=== PATIENT | female | born 1960 | race Caucasian/White ===

== ENCOUNTER → 2019-06-24 | Day surgery (SDC) | payer OTHER ==
[~2019-06-24] MED LIST: ALBUTEROL0.63 MG/3 NEB; ALLEGRA ALLERG180 MG PO; AMLODIPINE BESYL5 MG PO; CELEXA10 MG PO; COREG CR40 MG PO; CRESTOR10 MG PO; DIOVAN160 MG PO; EDARBYCLOR 40-1 EAC1 PO; FENTANYL CITRATE/PF 100MCG/2 ML INJ ONE; LASIX40 MG PO; MEGA RED KRILL OIL PO; MIDAZOLAM HCL 2 MG/2 ML VIAL ONE; PLAVIX75 MG PO; PREVACID30 MG PO; PROPOFOL IV EMULSION 10 MG/ML 50 ML VIAL ONE; QVAR REDIHALE10.6 G1 INH; TRILIPIX135 MG PO; WELCHOL625 MG PO; aspirin PO; potassium PO
--- OUTSIDE RECORDS SUMMARY | 2019-06-24 06:31 | XMS REPORT ---
Author Author [facility] Address Unknown Phone Unavailable Care Team Providers Care Ergonomic Specialist Name Role Phone Unavailable Unavailable Payers Payer Name Policy Type Policy Number Effective Date Expiration Date Problems This patient has no known problems. Allergies, Adverse Reactions, Alerts Allergy Name Allergy Type Status Severity Reaction(s) Onset Date Inactive Date Treating Clinician Comments Penicillins DA Active SV 2017-12-14 00:00:00 Medications This patient has no known medications. Results Test Description Test Time Test Comments Text Results Atomic Results Result Comments VULVA/LABIA,BIOPSY 2017-12-17 17:48:00 RUN DATE: 12/18/17 [facility] PAGE 1 RUN TIME: 946 Specimen Inquiry RUN USER: INTERFACE PATIENT: TORRIE HERNANDEZ LOC: [facility] U #: [id number] AGE/SX: 57/F ROOM: RE12/14/17REG DR: Sofia Damon MD : 64 BED: DIS: STATUS: DEP [facility] TLOC: SPEC #: [id number] RECD: 12/14/17 STATUS: SERGO LI #: [id number] VANDANA: 12/14/17- SUBM DR: Sofia Damon MD ENTERED: 12/14/17 SP TYPE: VULV/LAB OTHR DR: Andreas Rushing Jr, MD ORDERED: LEVEL IV CODES: [id number] - VULVA, NOS COPIES TO: Andreas Rushing Jr, MD [address] [place] [address] Sofia Damon MD [id number] [place] [phone] PROCEDURES: LEVEL IV (Incomplete) TISSUES: VULVA, NOS - VULVAR LESION CLINICAL HISTORY 57 year old, vulvar lesion (wpd) FINAL DIAGNOSIS Skin, vulvar lesion, biopsy: - mild epidermal hyperplasia with hyperkeratosis and basal atypia - superficial perivascular chronic inflammation and fibrosis - extradepartmental consul tation with [facility] for further evaluation ADDENDUM PENDING, SPECIMEN IS BEING SENT TO [facility] Tissue code 1 CPT code(s): 88617 cds/wpd 12/17/17 @ 1737 CONTINUED ON NEXT PAGE RUN DATE: 12/18/17 [facility] PAGE 2 RUN TIME: 946 Specimen Inquiry RUN USER: INTERFACE SPEC #: [id number] PATIENT: TORRIE HERNANDEZ #[id number] ( Continued) GROSS DESCRIPTION The specimen is received in a formalin-filled container, labeled with the patient's name and designated "vulvar lesion". The specimen consists of an ellipse of unoriented 1.4 x 0.9 cm hair bearing, villalobos- pelaez skin with underlying pink-yellow tissue measuring 0.9 cm. The margin is inked black. It is sectioned and submitted in toto in one cassette. [employer]/wpd 12/14/17 @ 0309 MICROSCOPIC DESCRIPTION Sections of the vulvar biopsy show a central area of mild epidermal hyperplasia with hypergranulosis and hyperkeratosis. Moderate perivascular chronic inflammation is present in the superficial dermis associated with fibrosis. Focal basal atypia is also n oted. COMMENT: This biopsy will be sent to [facility] for extradepartmental consultation. cds/wpd 12/17/17 @ 1735 Signed Bernardo Mendez Hugh 12/17/17 1748 ----- END OF REPORT VULVA/LABIA,BIOPSY 2017-12-17 17:48:00 RUN DATE: 12/20/17 [facility] PAGE 1 RUN TIME: 1323 Specimen Inquiry RUN USER: INTERFACE PATIENT: HERNANDEZTORRIE FULLER MARTINEZ LOC: DonSIM[facility]N U #: [id number] AGE/SX: 57/F ROOM: RE12/14/17REG DR: Sofia Damon MD : 64 BED: DIS: STATUS: SVETA [facility] TLOC: SPEC #: [id number] RECD: 12/14/17 STATUS: SERGO LI #: [id number] VANDANA: 12/14/17- SUBM DR: Sofia Damon MD ENTERED: 12/14/17 SP TYPE: VULV/LAB OTHR DR: Andreas Rushing Jr, MD ORDERED: LEVEL IV ADDENDUM FINDINGS Addendum #1 Entered: 12/19/170 The following is the final extradepartmental consultation diagnosis received from Sravani Thurman M.D., at [facility], [place], [place], on December 19, 2017. ADDENDUM FINAL DIAGNOSIS: Skin, vulva, biopsy: - scar with chronic inflammation COMMENT: Clinical correlation may be helpful to determine if this could represent the site of a prior procedure. I acknowledge the above findings. C. Hugh Mendez M.D., Pathologist/wpd December 19, 2017 @ 1510 Addendum Signed Bernardo Mendez 12/20/17 132 (prelim) Benrardo Mendez 12/20/17 1322 CODES: [id number] - VULVA, NOS COPIES TO: Andreas Rushing Jr, MD [address] [place] [address] CONTINUED ON NEXT PAGE RUN DATE: 12/20/17 [facility] PAGE 2 RUN TIME: 1323 Specimen Inquiry RUN USER: INTERFACE SPEC #: [id number] PATIENT: TORRIE HERNANDEZ #[id number] (Co ntinued) COPIES TO: (Continued) Sofia Damon MD [address] [place], [place] [id number] PROCEDURES: LEVEL IV (Incomplete) TISSUES: VULVA, NOS - VULVAR LESION CLINICAL HISTORY 57 year old, vulvar lesion (wpd) FINAL DIAGNOSIS Skin, vulvar lesion, biopsy: - mild epidermal hyperplasia with hyperkeratosis and basal atypia - superficial perivascular chronic inflammation and fibrosis - extradepartmental consultation with [facility] for further evaluation ADDENDUM PENDING, SPECIMEN IS BEING SENT TO [facility] Tissue code 1 CPT code(s): 34417 cds/wpd 12/17/17 @ 1737 GROSS DESCRIPTION The specimen is received in a formalin-filled container, labeled with the patient's name and designated "vulvar lesion". The specimen consists of an ellipse of unoriented 1.4 x 0.9 cm hair bearing, villalobos-pelaez skin with underlying pink-yellow tissue measuring 0.9 cm. The margin is inked black. It is sectioned and submitted in toto in one cassette. hz/wpd 12/14/17 @ 5437 MICROSCOPIC DESCRIPTION Sections of the vulvar biopsy show a central area of mild epidermal hyperplasia with hypergranulosis and hyperkeratosis. Moderate perivascular chronic inflammation is present in the superficial dermis associated with fibrosis. Focal basal atypia is also noted. COMMENT: This biopsy will be sent to [facility] for extradepartmental consultation. cds/wpd 12/17/17 @ 9771 CONTINUED ON NEXT PAGE RUN DATE: 12/20/17 [facility] PAGE 3 RUN TIME: 1323 Specimen Inquiry RUN USER: INTERFACE SPEC #: [id number] PATIENT: TORRIE HERNANDEZ #[id number] (Continued) Signed Bernardo Mendez 12/17/17 1748 END OF REPORT
[2019-06-24 11:30] VITALS: BP 128/64
== END | disposition home or self-care (01) ==
LOC: OR 06:29
PROVIDERS: ATTEND Internal Medicine Gastroenterology
DX: Z12.11 Encounter for screening for malignant neoplasm of colon (principal); D12.4 Benign neoplasm of descending colon; K31.7 Polyp of stomach and duodenum; K29.50 Unspecified chronic gastritis without bleeding; K29.80 Duodenitis without bleeding; K44.9 Diaphragmatic hernia without obstruction or gangrene; K59.00 Constipation, unspecified; K57.30 Diverticulosis of large intestine without perforation or abscess without bleeding; K58.9 Irritable bowel syndrome, unspecified; K21.9 Gastro-esophageal reflux disease without esophagitis; K64.8 Other hemorrhoids; I10 Essential (primary) hypertension; J45.909 Unspecified asthma, uncomplicated; I25.10 Atherosclerotic heart disease of native coronary artery without angina pectoris; E78.5 Hyperlipidemia, unspecified; Z88.0 Allergy status to penicillin; Z79.02 Long term (current) use of antithrombotics/antiplatelets; Z79.899 Other long term (current) drug therapy; Z68.41 Body mass index [BMI] 40.0-44.9, adult; Z95.5 Presence of coronary angioplasty implant and graft; Z83.79 Family history of other diseases of the digestive system
CPT/HCPCS: 43239; 45380; 45384; J2250; J2704; J3010; 45378